=== PATIENT | female | born 1950 | race Caucasian/White ===

== ENCOUNTER → 2020-08-21 | Outpatient (CLI) | payer MEDICARE, OTHER | LOC: HEART 5 10:45 | DX: R00.2 Palpitations (principal); I47.1 Supraventricular tachycardia ==

== ENCOUNTER → 2020-10-04 | Outpatient (CLI) | payer MEDICARE, OTHER | LOC: EXRD 08:35 | DX: R14.0 Abdominal distension (gaseous) (principal); R10.9 Unspecified abdominal pain; K80.80 Other cholelithiasis without obstruction; N28.1 Cyst of kidney, acquired | CPT/HCPCS: 76705 ==

== ENCOUNTER → 2020-12-31 | Outpatient (CLI) | payer MEDICARE, OTHER | LOC: KOH-I 09:23 | DX: R05 Cough (principal) | CPT/HCPCS: 71046 ==

== ENCOUNTER → 2021-04-22 | Outpatient (CLI) | payer MEDICARE, OTHER | LOC: KOH-I 14:29 | DX: E78.5 Hyperlipidemia, unspecified (principal) | CPT/HCPCS: 73630 ==

== ENCOUNTER → 2021-04-28 | Outpatient (CLI) | payer MEDICARE, OTHER | LOC: KOH-I 10:48 | DX: M79.672 Pain in left foot (principal); R93.7 Abnormal findings on diagnostic imaging of other parts of musculoskeletal system; M72.2 Plantar fascial fibromatosis | CPT/HCPCS: 73718 ==